=== PATIENT | female | born 1990 | race Caucasian/White ===

== ENCOUNTER 2021-05-25 20:09 | Emergency (ER) | payer OTHER, SELFPAY ==
--- NOTE | ~2021-05-25 | CT_ITS ---
EXAMINATION: CT abdomen pelvis w con DATE: 05/26/2021 01:11 INDICATION: Left lower quadrant abdominal pain. TECHNIQUE: Computed tomography (CT) of the abdomen and pelvis was performed with 100 mL Omnipaque 350 intravenous contrast. Automated exposure control and iterative reconstruction technique were employe d. The dose-length product was 1435.88 mGy-cm. COMPARISON: None. FINDINGS: The visualized portions of the lung bases demonstrate mild dependent atelectasis. No pleura l effusion. The heart size is normal. No pericardial effusion. The liver, spleen, gallbladder, pancre as, adrenal glands, and kidneys are normal. There are no dilated loops of bowel. The appendix is norm al. There are no pathologically enlarged lymph nodes. There is no free intraperitoneal fluid. There i s mild thoracolumbar spondylosis. IMPRESSION: 1. No specific etiology for the patient's symptoms. Reviewed, dictated and finalized at location A[facility]
[2021-05-25 20:28] VITALS: BP 132/93; PULSE 114; RESP 20; TEMP 36.3; O2SAT 99
[2021-05-25 23:23] VITALS: BP 113/81; PULSE 100; RESP 17; TEMP 36.7; O2SAT 99
[2021-05-25 23:34] LABS: Basophils Percent Auto 0.3 % (0.2-1.2); Eosinophils Absolute Auto 0.1 K/mm3 (0-0.3); Eosinophils Percent Auto 0.9 % (0-4.4); Hematocrit 42.4 % (37.0-47.0); Hemoglobin 14.1 g/dL (12.0-15.0); Immature Granulocyte Absolute 0.03 K/mm3 (0.00-0.031); Immature Granulocyte Percent A 0.3 % (0-0.5); Lymphocytes Absolute Auto 0.86 K/mm3 (0.9-3.2); Lymphocytes Percent Auto 7.3 % (18.3-44.2); Mean Corpuscular HGB Conc 33.3 g/dl (32-36); Mean Corpuscular Volume 87.1 fl (80-100); Monocytes Absolute Auto 0.6 K/mm3 (0.1-0.6); Monocytes Percent Auto 5.4 % (2.6-8.5); Neutrophils Absolute Auto 10.1 K/mm3 (1.3-6.7); Neutrophils Percent Auto 85.8 % (45.5-73.1); Platelet Count Result 325 k/mm3 (150-375); Red Blood Count 4.87 M/mm3 (4.2-5.4); Red Cell Distribution Width 12.9 % (11.5-14.5); White Blood Count 11.8 K/mm3 (4.5-10.0)
--- NOTE | 2021-05-25 23:37 | PC.NURSE ---
Patient had hysterectomy.
[2021-05-25 23:42] LABS: Add Urine Microscopic? YES; Appearance Urine Cloudy (Clear); Bilirubin Urine Negative (Negative); Blood Urine Negative (Negative); Color Urine Amber (Yellow); Glucose Urine UA Negative (Negative); Ketones Urine Negative (Negative); Leukocyte Esterase Ur Negative LEU/UL (Negative); Mucus Urine Heavy /lpf; Nitrate Urine Negative (Negative); Protein Urine 1+ mg/dL (Negative); Specific Grav Ur 1.029 (1.001-1.035); Squamous Epithelial Cell Urine Many /hpf (Few)
[2021-05-25 23:45] LABS: Lactic Acid Reflex 0.9 mmol/L (0.7-2.1)
[2021-05-25 23:46] LABS: Alanine Aminotransferase 21 U/L (4-35); Albumin Level 4.3 g/dL (3.5-5.1); Alkaline Phosphatase 75 U/L (38-126); Anion Gap 8 mmol/L (8-16); Aspartate Amino Transferase 25 U/L (14-36); Bilirubin,Total 0.7 mg/dL (0.2-1.3); Blood Urea Nitrogen 16 mg/dL (7-17); Carbon Dioxide 28 mmol/L (22-30); Chloride 100 mmol/L (98-107); Estimated CRCL calculation 96 ml/min; Estimated Glomerular Filt Rate > 60; Glucose 138 mg/dL (65-110); Lipase 105 U/L (23-300); Potassium 3.7 mmol/L (3.4-5.0); Sodium 136 mmol/L (137-145)
[2021-05-26] MEDS: diphenhydrAMINE HCl INJ 50 MG/ML VIAL IV PUSH (00:29)
[2021-05-26] MEDS: PROCHLORPERAZINE EDISYLATE 10 MG/2 ML VIAL IV PUSH (00:29)
[2021-05-26] MEDS: SODIUM CHLORIDE 0.9% IV 1,000 ML 999 ML IV CONT (00:29)
--- NOTE | 2021-05-26 00:55 | PC.NURSE ---
Patient taken to CT via stretcher.
--- NOTE | 2021-05-26 01:15 | ED.GENADULT ---
HPI - General Adult General Chief complaint: Nausea/Vomiting/Diarrhea Stated complaint: N/V x1 day, ABD pain Time Seen by Provider: 05/25/21 22:58 History of Present Illness HPI narrative: Patient is a 31-year-old female presents emerged from with chief complaint of nausea and vomiting. Patient reports she has history of stomach issues and is currently seen by GI at [place]. Patient states she is scheduled for an endoscopy in the near future and reports that today she started having multiple episodes of nausea and vomiting and has been able to keep fluids down. The patient states she is tried Zofran ODT's at home without success. The patient states that she has pain in the left lower quadrant reports has had multiple abdominal surgeries in the past as well. Related Data Allergies Allergy/AdvReac Type Severity Reaction Status Date / Time shellfish derived Allergy Itching Verified 05/25/21 20:12 shrimp Allergy Itching Verified 05/25/21 20:12 Review of Systems Review of Systems: A 10 system review of systems was completed on the patient and is negative except for what is stated in the HPI. Nursing and ancillary documentation was reviewed. Exam Narrative: GENERAL: Well-appearing, well-nourished, and in no acute distress. HEAD: Normocephalic, atraumatic. EYES: PERRLA and EOMI. ENT: Nares clear, no rhinorrhea or epistaxis. Mucous membranes moist. NECK: Supple. CHEST: Clear to auscultation. No respiratory distress. HEART: Regular rate and rhythm. No murmur heard. Normal peripheral pulses. ABDOMEN: Soft, tenderness to palpation in the left lower quadrant, nondistended, normal active bowel sounds. EXTREMITIES: Normal range of motion. No edema. SKIN: Warm, dry, no rash. NEURO: No focal deficits. Alert and oriented x3. PSYCH: Normal mood and affect. Course Course Emergency Course: CT scan showed no acute abnormality She is feeling much better at this time Vital Signs Vital signs: Vital Signs Temperature 36.3 C L 05/25/21 20:28 Pulse Rate 114 H 05/25/21 20:28 Respiratory Rate 20 05/25/21 20:28 Blood Pressure 132/93 H 05/25/21 20:28 Pulse Oximetry 99 05/25/21 20:28 Temperature 36.6 C 05/26/21 01:26 Pulse Rate 73 05/26/21 01:26 Respiratory Rate 17 05/26/21 01:26 Blood Pressure 106/71 05/26/21 01:26 Pulse Oximetry 99 05/26/21 01:26 Medical Decision Making Vital Signs Vital Signs: Vital Signs Temperature 36.3 C L 05/25/21 20:28 Pulse Rate 114 H 05/25/21 20:28 Respiratory Rate 20 05/25/21 20:28 Blood Pressure 132/93 H 05/25/21 20:28 Pulse Oximetry 99 05/25/21 20:28 Temperature 36.6 C 05/26/21 01:26 Pulse Rate 73 05/26/21 01:26 Respiratory Rate 17 05/26/21 01:26 Blood Pressure 106/71 05/26/21 01:26 Pulse Oximetry 99 05/26/21 01:26 Lab Data Result diagrams: 05/25/21 23:29 05/25/21 23:29 Labs: Lab Results 05/25/21 05/25/21 05/25/21 Range/Units 23:29 23:29 23:29 WBC 11.8 H (4.5-10.0) K/mm3 RBC 4.87 (4.2-5.4) M/mm3 Hgb 14.1 (12.0-15.0) g/dL Hct 42.4 (37.0-47.0) % MCV 87.1 (80-100) fl MCH 29.0 (26-34) pg MCHC 33.3 (32-36) g/dl RDW 12.9 (11.5-14.5) % Plt Count 325 (150-375) k/mm3 MPV 10.0 (7.4-10.4) fl Immature Gran % (Auto) 0.3 (0-0.5) % Neut % (Auto) 85.8 H (45.5-73.1) % Lymph % (Auto) 7.3 L (18.3-44.2) % [place] % (Auto) 5.4 (2.6-8.5) % Eos % (Auto) 0.9 (0-4.4) % Baso % (Auto) 0.3 (0.2-1.2) % Lymph # (Auto) 0.86 L (0.9-3.2) K/mm3 [place] # (Auto) 0.6 (0.1-0.6) K/mm3 Eos # (Auto) 0.1 (0-0.3) K/mm3 Baso # (Auto) 0.0 (0.0-0.1) K/mm3 Abs Immat Gran (auto) 0.03 (0.00-0.031) K/mm3 Absolute Neuts (auto) 10.1 H (1.3-6.7) K/mm3 Absolute Nucleated RBC 0.0 (0.0-0.012) K/mm3 Nucleated RBC % 0.0 (0.0-0.2) % Sodium 136 L (137-145) mmol/L Potassium 3.7 (3.4-5.0) mmol/L Chloride 100 (98-107) mm
[2021-05-26 01:26] VITALS: BP 106/71; PULSE 73; RESP 17; TEMP 36.6; O2SAT 99
== END 2021-05-26 01:52 | disposition home or self-care (01) ==
PROVIDERS: Emergency Provider Emergency Medicine
DX: R11.2 Nausea with vomiting, unspecified (principal); R10.84 Generalized abdominal pain
CPT/HCPCS: 36415; 74177; 80053; 81001; 83605; 83690; 85025; 96361; 96374; 96375; 99284; J0780; J1200; J7030; Q9967